=== PATIENT | female | born 1975 | race American Indian/Alaskan Native ===

== ENCOUNTER 2018-10-22 08:59 | Outpatient (CLI) | payer MEDICAID ==
--- NOTE | 2018-10-22 10:41 | Nuclear Medicine Report ---
Renal nuclear scan: Abnormal renal function. Following injection of radionuclide flow imaging demonstrates a normal flow pattern to both kidneys with a slightly increased volume of flow to the left kidney relative to the right. Static imaging of the kidneys demonstrates relatively equal sizes and normal contours. There is an activity void however just superior to the left central renal collecting system. The collecting systems including the single bilateral ureters are otherwise generally unremarkable. Split function studies demonstrates the left kidney supplying 56.8% and the right kidney 43.2% of total activity. Impressions: 1. The activity void in the left kidney requires further anatomic imaging evaluation which may include intravenous pyelogram, ultrasound, or CT scan. 2. Both kidneys appear to function well and relatively equally. No evidence of obstruction.
== END 2018-10-22 09:00 | disposition home or self-care (01) ==
LOC: NM 08:59
PROVIDERS: ATTEND Internal Medicine
DX: R94.4 Abnormal results of kidney function studies (principal); I10 Essential (primary) hypertension; J45.909 Unspecified asthma, uncomplicated; Z90.49 Acquired absence of other specified parts of digestive tract
CPT/HCPCS: 78707; A9562